=== PATIENT | female | born 1975 | race Caucasian/White ===

== ENCOUNTER 2018-12-28 11:00 | Inpatient (IN) | payer MEDICAID ==
[2018-12-28] MEDS ORDERED: LACTATED RINGER'S 1,000 ML IV (11:12)
[2018-12-28] MEDS ORDERED: MISOPROSTOL 200 MCG TAB PR ×2 (11:30→12:00)
[2018-12-28] MEDS ORDERED: METHYLERGONOVINE 0.2 MG INJ IM ×2 (11:30→12:00)
[2018-12-28] MEDS ORDERED: OXYTOCIN 30 UNITS/LR 500 ML IV ×4 (11:30→12:00)
[2018-12-28] MEDS ORDERED: CARBOPROST 250 MCG INJ IM ×2 (11:30→12:00)
[2018-12-28] MEDS ORDERED: IBUPROFEN 600 MG TAB PO (11:30)
[2018-12-28] MEDS ORDERED: LIDOCAINE 1% (MPF) 30 ML INJ INJ (11:30)
[2018-12-28] MEDS: OXYTOCIN 30 UNITS/LR 500 ML IV ×2 (11:39→12:58)
[2018-12-28] MEDS: LACTATED RINGER'S 1,000 ML IV* ×2 (11:41→19:31)
[2018-12-28] MEDS ORDERED: HYDROCODONE/APAP (5/325) TAB PO (12:00)
[2018-12-28 12:06] LABS: ADD MAN DIFF? NO
[2018-12-28 12:22] LABS: BASOPHILS % 0.2 % (0.0-2.0); EOSINOPHILS # 0.1 10^3/ul (0.0-0.5); EOSINOPHILS % 0.7 % (0.0-7.0); HEMATOCRIT 38.9 % (37.0-47.0); LYMPHOCYTES # 3.3 10^3/ul (0.8-2.9); LYMPHOCYTES % 27.3 % (15.0-51.0); MEAN CORPUSCULAR HEMOGLOBIN 32.6 pg (29.0-33.0); MEAN CORPUSCULAR HGB CONC 33.4 g/dl (32.0-37.0); MEAN CORPUSCULAR VOLUME 97.5 fl (82.0-101.0); MEAN PLATELET VOLUME 11.3 fl (7.4-10.4); MONOCYTE # 0.5 10^3/ul (0.3-0.9); MONOCYTES % 4.5 % (0.0-11.0); NEUTROPHIL # 8.1 10^3/ul (1.6-7.5); NEUTROPHILS % 66.9 % (39.0-77.0); PLATELET COUNT 213 10^3/UL (140-415); RED BLOOD COUNT 3.99 10^6/ul (4.20-5.40); RED CELL DISTRIBUTION WIDTH 13.5 % (11.5-14.5)
[2018-12-28 12:22] LABS: WHITE BLOOD COUNT 12.1 10^3/ul (4.8-10.8)
[2018-12-28 12:40] LABS: INR 0.87; PARTIAL THROMBOPLASTIN TIME 28.6 Sec (23.0-35.0); PROTIME 11.9 Sec (11.9-14.9); PT RATIO 0.9
[2018-12-28] MEDS: IBUPROFEN 600 MG TAB PO ×2 (14:36→18:00)
[2018-12-28] MEDS: LANOLIN HPA 1 PKT TOP (14:36)
[2018-12-28 16:22] LABS: AMPHETAMINE/METHAMPHETAMINE Negative (NEGATIVE); BARBITURATES Negative (NEGATIVE); BENZODIAZEPINES Negative (NEGATIVE); CANNABINOIDS Negative (NEGATIVE); COCAINE Negative (NEGATIVE); OPIATES Negative (NEGATIVE)
[2018-12-28 16:39] LABS: RAPID PLASMA REAGIN NONREACTIVE (NR)
[2018-12-29] MEDS: IBUPROFEN 600 MG TAB PO ×4 (00:12→18:21)
[2018-12-29] MEDS: LACTATED RINGER'S 1,000 ML IV* (03:31)
[2018-12-29 06:47] LABS: ADD MAN DIFF? NO
[2018-12-29 06:49] LABS: WHITE BLOOD COUNT 9.6 10^3/ul (4.8-10.8)
[2018-12-29 06:49] LABS: BASOPHILS % 0.3 % (0.0-2.0); EOSINOPHILS # 0.1 10^3/ul (0.0-0.5); EOSINOPHILS % 1.2 % (0.0-7.0); HEMATOCRIT 35.1 % (37.0-47.0); HEMOGLOBIN 11.5 g/dl (12.0-16.0); LYMPHOCYTES # 2.1 10^3/ul (0.8-2.9); LYMPHOCYTES % 21.4 % (15.0-51.0); MEAN CORPUSCULAR HEMOGLOBIN 32.4 pg (29.0-33.0); MEAN CORPUSCULAR HGB CONC 32.8 g/dl (32.0-37.0); MEAN CORPUSCULAR VOLUME 98.9 fl (82.0-101.0); MEAN PLATELET VOLUME 10.8 fl (7.4-10.4); MONOCYTE # 0.5 10^3/ul (0.3-0.9); NEUTROPHIL # 6.8 10^3/ul (1.6-7.5); NEUTROPHILS % 71.5 % (39.0-77.0); PLATELET COUNT 182 10^3/UL (140-415); RED BLOOD COUNT 3.55 10^6/ul (4.20-5.40); RED CELL DISTRIBUTION WIDTH 13.7 % (11.5-14.5)
[2018-12-29] MEDS: LANOLIN HPA 1 PKT TOP (10:05)
[2018-12-29 14:24] LABS: HEPATITIS B SURFACE ANTIGEN NEGATIVE (NEGATIVE)
[2018-12-30] MEDS: IBUPROFEN 600 MG TAB PO ×3 (00:11→12:18)
[2018-12-30] MEDS: DIPHTH/TET/ACEL PERTUSS (ADULT) 0.5 ML VIAL IM* (09:00)
[2018-12-31 12:06] LABS: RUBELLA ANTIBODY - IGM <20.00 AU/mL
[2018-12-31 15:22] LABS: RUBELLA ANTIBODY - IGG 1.61 index
== END 2018-12-30 14:55 | disposition home or self-care (01) | DRG 807 ==
LOC: L-D 11:00 → PP1 13:12
PROC: 10E0XZZ Delivery of Products of Conception, External Approach (ICD-10-PCS; principal; 2018-12-28)
PROC: 0HQ9XZZ Repair Perineum Skin, External Approach (ICD-10-PCS; 2018-12-28)
DX: O77.0 Labor and delivery complicated by meconium in amniotic fluid (principal); Z37.0 Single live birth; O70.0 First degree perineal laceration during delivery; Z3A.38 38 weeks gestation of pregnancy
CPT/HCPCS: 80307; 85025; 85610; 85730; 86592; 86762; 86850; 86900; 86901; 87340; 99464